=== PATIENT | male | born 1985 | race Caucasian/White ===

== ENCOUNTER 2016-10-30 18:18 | Emergency (ER) | payer BC ==
--- NOTE | 2016-10-30 19:29 | ERNOTE ---
Upper Extremity HPI - Narrative Date of Service: 10/30/16 - General Extremities Pain Location: 3rd finger: right Time Seen by Provider: 10/30/16 18:51 Source: patient Exam Limitations: no limitations - Immun/Allergies/Home Medications Immunizations: IMMUNIZATION HX Immunizations Up to Date Yes History of Influenza Vaccine No Hx Pneumococcal Vaccination No Allergies/Adverse Reactions: Allergies Allergy/AdvReac Type Severity Reaction Status Date / Time No Known Allergies Allergy Unverified 10/30/16 18:41 Home Medications: HOME MEDICATIONS NK [No Home Medication] 10/30/16 [Last Taken Unknown] - History of Present Illness Narrative: Pt. comes in with laceration from meat wrapper on the dorsum of his R middle finger just prior to arrival. Pt. denies any numbness or tingling but is unable to straighten his finger. Occurred: just prior to arrival Review of Systems - Review of Systems Constitutional: Present: no symptoms reported. Absent: recent illness, fever, chills, weakness, fatigue, malaise Respiratory: Present: no symptoms reported. Absent: shortness of breath, cough , wheezing Cardiology: Present: no symptoms reported. Absent: chest pain, palpitations, edema Gastrointestinal/Abdominal: Present: no symptoms reported. Absent: nausea, vomiting, diarrhea, abdominal pain Musculoskeletal: Present: joint pain - R third DIP joint untable to extend, other. Absent: back pain Skin: Present: no symptoms reported. Absent: rash, change in color Neurological: Present: no symptoms reported. Absent: headache, dizziness/light- headedness, numbness, tingling All Other Systems: All systems neg except as marked - Patient's Past Medical History Patient History - Medical: No pertinent hx Patient History - Cancer: No Hx of Cancer Patient History - Surgical Procedures: Other - Social History Living Situations: home Smoking Status: Former smoker Have you smoked in the past 12 months: No Do you dip or chew tobacco: No Drug Use: none Physical Exam - Physical Exam General Appearance: Present: wd/wn, alert, no apparent distress Eye Exam: Normal inspection: bilateral, PERRL: bilateral, EOMI: bilateral Neck: Present: normal inspection, nontender. Absent: lymphadenopathy (R), lymphadenopathy (L) Respiratory: Present: no respiratory distress, normal breath sounds, no accessory muscle use, chest nontender, lungs clear Cardiovascular/Chest: Present: regular rate, rhythm, no murmur, normal peripheral pulses Gastrointestinal/Abdominal: Present: normal bowel sounds, nontender, nondistended, soft, no organomegaly Back Exam: Present: normal inspection, normal range of motion, no CVA tenderness , no vertebral tenderness Extremity Exam: Present: no edema, decreased range of motion - R distal DIP joint, other - extensor tendon laceration DIP joint Neurological Exam: Present: alert, oriented, normal mood/affect, no motor/ sensory deficits Skin Exam: Present: normal color, warm/dry. Absent: pallor, skin rash ED Progress - Date and Time Seen: Date and Time: 10/30/16 19:21 As pt appears to have tendon damage will call [facility] hand surgeon for recommendations per patient request. 10/30/16 19:[address] Yap and we will place a suture to approximate the skin and have pt. follow up Friday morning or he can go to the [facility] ED for full repair this evening by Dr Yap. 10/30/16 20:02 Pt. would like to meet Dr Yap at [facility] to have repair done tonight, will bandage him and send him up there with no closure per Dr Yap recommendations. Verified with Dr Murphy that this is not something that we could do here. - Vital Signs Patient's Vital Signs:: I have reviewed the patient's vital signs. Vital Signs: Vital Signs 10/30/16 18:35 Temperature 36.0 C L Pulse Rate 60 Respiratory 16 Rate Blood Pressure 151/75 O2 Sat by Pulse 100 Oximetry - X-Ray X-Ray #1 X-Ray: finger Interpretation: Interp. by me X-ray Comments: no acute ossious abnormality - Progress/Reassessment Chief Complaint: Upper Extremity Injury/Problem Departure Clinical Impression: Extensor tendon laceration of finger with open wound Qualifiers: Encounter type: initial encounter Qualified Code(s): S66.529A - Laceration of intrinsic muscle, fascia and tendon of unspecified finger at wrist and hand level, initial encounter; S61.209A - Unspecified open wound of unspecified finger without damage to nail, initial encounter - Departure Disposition: Home self-care Condition: Good Instructions: Laceration Care, Adult, [id number] Additional Instructions: Please follow up with Dr Yap at [facility] ER for repair tonight.
[2016-10-30] MEDS ORDERED: DIPHTH,PERTUSS(ACELL),TET VAC 0.5 ML VIAL IM ONE ×2 (20:01)
[2016-10-30 20:12] VITALS: BP 139/72
== END 2016-10-30 20:15 | disposition home or self-care (01) ==
LOC: ER 18:18
DX: S66.322A Laceration of extensor muscle, fascia and tendon of right middle finger at wrist and hand level, initial encounter (principal); Z87.891 Personal history of nicotine dependence; W26.0XXA Contact with knife, initial encounter; Y93.G1 Activity, food preparation and clean up; Z23 Encounter for immunization

== ENCOUNTER 2017-08-13 21:16 | Emergency (ER) | payer BC ==
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
[2017-08-14 06:07] VITALS: BP 129/75
== END 2017-08-13 23:33 | disposition home or self-care (01) ==
LOC: ER 21:16
DX: S13.9XXA Sprain of joints and ligaments of unspecified parts of neck, initial encounter (principal); S29.019A Strain of muscle and tendon of unspecified wall of thorax, initial encounter; V89.2XXA Person injured in unspecified motor-vehicle accident, traffic, initial encounter